=== PATIENT | female | born 1990 | race Caucasian/White ===

== ENCOUNTER 2020-12-11 23:52 | Emergency (ER) | payer OTHER ==
[2020-12-12 00:15] VITALS: BP 118/75; PULSE 67; TEMP 98.5; BMI 23.0
[2020-12-12] MEDS ORDERED: SODIUM CHLORIDE 1,000 ML IV STA (00:45)
[2020-12-12] MEDS ORDERED: ACETAMINOPHEN 325 MG TABLET (FP) PO ONE (00:53)
[2020-12-12] MEDS ORDERED: PANTOPRAZOLE 40 MG TABLET PO ONE (00:58)
[2020-12-12] MEDS ORDERED: PANTOPRAZOLE 40 MG TABLET ONE (01:29)
[2020-12-12] MEDS ORDERED: ACETAMINOPHEN 325 MG TABLET (FP) ONE (01:29)
== END 2020-12-12 01:40 | disposition home or self-care (01) ==
LOC: JER 23:52
DX: R14.1 Gas pain (principal); T47.2X5A Adverse effect of stimulant laxatives, initial encounter
CPT/HCPCS: 99283-25